=== PATIENT | female | born 1990 | race Caucasian/White ===

== ENCOUNTER 2019-12-23 23:44 | Emergency (ER) | payer BC ==
--- NOTE | 2019-12-24 00:02 | ER Document Report ---
ED Medical Screen (RME) - General Chief Complaint: Irregular Pulse Stated Complaint: NAUSEA Notes: Patient is a 29-year-old white female with a history of dvt a few years ago who was on Coumadin for about 6 months who states that she had a follow-up imaging reported the DVT was gone and she has been fine since. She reports no other past medical history. She states today she started feeling bad while driving. States that she started getting some tightness in her chest and neck. States that the left side of her face felt weird but it feels fine now. She states that she could feel her heart racing and fluttering. She states she looked at her smart watch which showed her heart rate to be around 48 and then it suddenly jumped up to the 160s and she states that she could feel the change in the racing in her heart. She states that she got shaky and felt nauseous. She denies any history of the same. Denies any shortness of breath. She did just recently travel in a car ride about 5 to 5-1/2 hours. She is a current everyday smoker and has had a history of DVT. She does not take any oral contraceptives or hormone replacement medicines. She has no history of personal cancer. No recent surgeries. I have treated and performed a rapid initial assessment of this patient. A comprehensive ED assessment and evaluation of the patient, analysis of test results and completion of medical decision making process will be conducted by additional ED providers. PHYSICAL EXAMINATION: GENERAL: Well-appearing, well-nourished and in no acute distress. A&Ox4. Answers questions appropriately. - Related Data Allergies/Adverse Reactions: No Known Allergies Allergy (Unverified 12/23/19 23:53) Past Medical History - Social History Frequency of alcohol use: None Drug Abuse: None Physical Exam - Vital signs Vitals: Temp Pulse Resp BP Pulse Ox 98.2 F 83 18 149/85 H 100 12/23/19 23:49 12/23/19 23:49 12/23/19 23:49 12/23/19 23:49 12/23/19 23:49 Course - Vital Signs Vital signs: Temp Pulse Resp BP Pulse Ox 98.2 F 83 18 149/85 H 100 12/23/19 23:49 12/23/19 23:49 12/23/19 23:49 12/23/19 23:49 12/23/19:49
--- NOTE | 2019-12-24 00:45 | RADIOLOGY REPORT (SQ) ---
EXAM DESCRIPTION: XR CHEST 1 VIEW COMPLETED DATE/TME: 12/23/2019 23:59 CLINICAL HISTORY: 29 years Female cp COMPARISON: None. FINDINGS: The cardiomediastinal silhouette appears unremarkable. No consolidating infiltrates or pleural effusions. No pneumothorax. IMPRESSION: No acute abnormality is identified.
[2019-12-24 01:23] LABS: ABSOLUTE EOSINOPHILS # (AUTO) 0.1 10^3/uL (0.0-0.6); ABSOLUTE LYMPHOCYTES (AUTO) 2.1 10^3/uL (0.5-4.7); ABSOLUTE MONOCYTES (AUTO) 0.6 10^3/uL (0.1-1.4); ABSOLUTE NEUT (AUTO) 6.4 10^3/uL (1.7-8.2); BASOPHILS % (AUTO) 0.2 % (0-2); EOSINOPHILS % (AUTO) 0.9 % (0-6); HEMATOCRIT 37.9 % (36.0-47.0); LYMPHOCYTES % (AUTO) 22.9 % (13-45); MEAN CORPUSCULAR HEMOGLOBIN 31.6 pg (27.0-33.4); MEAN CORPUSCULAR HGB CONC 34.3 g/dL (32.0-36.0); MEAN CORPUSCULAR VOLUME 92 fl (80-97); MONOCYTES % (AUTO) 6.7 % (3-13); PLATELET COUNT 242 10^3/uL (150-450); RED BLOOD COUNT 4.11 10^6/uL (3.72-5.28); SEGMENTED NEUTROPHILS % (AUTO) 69.3 % (42-78); TOTAL CELLS COUNTED % (AUTO) 100 %; WHITE BLOOD COUNT 9.3 10^3/uL (4.0-10.5)
[2019-12-24 01:37] LABS: ALBUMIN 4.5 g/dL (3.5-5.0); ALKALINE PHOSPHATASE 51 U/L (38-126); ANION GAP 12 (5-19); ASPARTATE AMINO TRANSFERASE 23 U/L (14-36); BILIRUBIN,DIRECT 0.1 mg/dL (0.0-0.4); BILIRUBIN,TOTAL 0.4 mg/dL (0.2-1.3); BLOOD UREA NITROGEN 13 mg/dL (7-20); CALCIUM 9.8 mg/dL (8.4-10.2); CARBON DIOXIDE 23 mmol/L (22-30); CHLORIDE 105 mmol/L (98-107); CREATINE KINASE 66 U/L (30-135); GLUCOSE 110 mg/dL (75-110); POTASSIUM 3.9 mmol/L (3.6-5.0)
[2019-12-24 01:40] LABS: INTERNATIONAL RATION (INR) 1.04; PROTHROMBIN TIME 13.8 SEC (11.4-15.4)
[2019-12-24 01:41] LABS: PARTIAL THROMBOPLASTIN TIME 24.7 SEC (23.5-35.8)
[2019-12-24 01:56] LABS: D-DIMER < 0.27 ug/mL (0.00-0.50)
--- NOTE | 2019-12-24 03:21 | ER Document Report ---
ED General - General Chief Complaint: Irregular Pulse Stated Complaint: NAUSEA Time Seen by Provider: 12/24/19 03:06 Primary Care Provider: KHADAR ANGEL MD [ACTIVE STAFF] - Follow up tomorrow Notes: Patient is a 29-year-old female who comes emergency department for chief complaint of an episode that happened while she was driving where she started feeling like her heart would slow down, then it felt like her heart was racing for several minutes, she states she felt somewhat nauseated and uncomfortable at the time. She states this lasted several minutes and then stopped. She has felt occasional palpitations otherwise. She did just travel in a 5-1/2-hour car ride. She denies lower extremity swelling. She denies chest pain. She denies any current symptoms. She does have a history of DVT as a teenager and was on Coumadin for 6 months, she was cleared at that time and has not had problems since. She is not on oral contraceptive. She does smoke. She denies recreational drugs. She denies any daily prescribed medications or medical history otherwise. - Related Data Allergies/Adverse Reactions: No Known Allergies Allergy (Unverified 12/23/19 23:53) Past Medical History - General Information source: Patient, Parent - Social History Smoking Status: Current Every Day Smoker Smoking Education Provided: Yes - <3 min Frequency of alcohol use: None Drug Abuse: None Lives with: Family Family History: Reviewed & Not Pertinent - Past Medical History Cardiac Medical History: Reports: Hx DVT - Immunizations Immunizations up to date: Yes Hx Diphtheria, Pertussis, Tetanus Vaccination: Yes Review of Systems - Review of Systems Constitutional: No symptoms reported EENT: No symptoms reported Cardiovascular: See HPI Respiratory: No symptoms reported Gastrointestinal: No symptoms reported Genitourinary: No symptoms reported Female Genitourinary: No symptoms reported Musculoskeletal: No symptoms reported Skin: No symptoms reported Hematologic/Lymphatic: No symptoms reported Neurological/Psychological: No symptoms reported Physical Exam - Vital signs Vitals: Temp Pulse Resp BP Pulse Ox 98.2 F 83 18 149/85 H 100 12/23/19 23:49 12/23/19 23:49 12/23/19 23:49 12/23/19 23:49 12/23/19 23:49 - Notes Notes: GENERAL: Alert, interacts well. No acute distress. HEAD: Normocephalic, atraumatic. EYES: Pupils equal, round, and reactive to light. Extraocular movements intact. ENT: Oral mucosa moist, tongue midline. Oropharynx unremarkable. Airway patent. LUNGS: Clear to auscultation bilaterally, no wheezes, rales, or rhonchi. No respiratory distress. Non-tender chest wall. HEART: Regular rate and rhythm. No murmur ABDOMEN: Soft, non-tender. Non-distended. EXTREMITIES: Moves all 4 extremities spontaneously. No edema, normal radial and dorsalis pedis pulses bilaterally. No cyanosis. BACK: no cervical, thoracic, lumbar midline tenderness. No saddle anesthesia, normal distal neurovascular exam. Moves all extremities in full range of motion. NEUROLOGICAL: Alert and oriented x3. Normal speech. Cranial nerves II through XII grossly intact. Strength 5/5 in all extremities. PSYCH: Normal affect, normal mood. SKIN: Warm, dry, normal turgor. No rashes or lesions noted. Course - Re-evaluation Re-evalutation: Patient currently asymptomatic. She is not tachycardic, I do not see PVCs on the monitor on my evaluation, her vital signs are unremarkable on my evaluation. Physical exam unremarkable. PVCs are noted on the EKG. Patient does smoke and does have a history of DVT but she has no lower extremity swelling, no current symptoms, no tachycardia, no hypoxia, and a negative D-dimer. Low suspicion of pulmonary embolism as a result. I did discuss CTA of the chest with patient but this was deferred. Patient also had an episode earlier where she felt like her heart was racing, this did resolve on its own. Possibly SVT, she did not have chest pain at the time and she did not pass out. Patient does not have cardiology follow-up but is asking for it. Laboratory work-up unremarkable, chest x-ray and EKG otherwise unremarkable, patient discharged with follow-up instructions for cardiology and return precautions which were discussed. Patient and mother state understanding and agreement. - Vital Signs Vital signs: Temp Pulse Resp BP Pulse Ox 98 F 57 L 19 109/76 100 12/24/19 03:40 12/24/19 03:40 12/24/19 03:40 12/24/19 03:40 12/24/19 03:40 - Laboratory Result Diagrams: 12/24/19 00:51 12/24/19 00:51 - EKG Interpretation by Me Additional EKG results interpreted by me: EKG shows sinus rhythm at a rate of 72 with multiple PVCs noted. QTc 447, [place] interval of 148, normal axis, no T wave inversions or ST segment changes in consecutive leads. Discharge - Discharge Clinical Impression: Palpitations, PVC (premature ventricular contraction) Condition: Stable Disposition: HOME, SELF-CARE Additional Instructions: Your evaluation here does show PVCs although you may have had a different arrhythmia earlier today with your symptoms. Your remaining work-up does not show any concerning findings. Please follow-up with the cardiology referral listed below, call today for your close follow-up. Stop smoking, avoid large amounts of caffeine. Return if you worsen including chest pain, difficulty breathing, swelling in your legs, passing out, or any other concerning or worsening symptoms. Referrals: KHADAR ANGEL MD [ACTIVE STAFF] - Follow up tomorrow
[2019-12-24 03:42] VITALS: BP 109/76
--- NOTE | 2019-12-24 07:33 | EKG REPORT ---
SEVERITY:- ABNORMAL ECG - SINUS RHYTHM MULTIPLE VENTRICULAR PREMATURE COMPLEXES : Confirmed by: Leopoldo Rosenberg MD 24-Dec-2019 07:33:15
== END 2019-12-24 03:39 | disposition home or self-care (01) ==
LOC: ER 23:44
DX: R00.2 Palpitations (principal); I49.3 Ventricular premature depolarization; R11.0 Nausea; M79.89 Other specified soft tissue disorders; F17.200 Nicotine dependence, unspecified, uncomplicated; Z86.718 Personal history of other venous thrombosis and embolism
CPT/HCPCS: 36415; 71045; 80053; 82550; 84443; 84484; 84703; 85025; 85379; 85610; 85730; 93005; 93010; 99285